=== PATIENT | female | born 1980 | race Caucasian/White ===

== ENCOUNTER → 2018-04-17 | Outpatient (REF) ==
[~2018-04-17] MED LIST: ALBU8.5H IH; BLOO-1318 MC; BLOO-1337 MC; CITA-145 PO; DOXY25TA11 PO; GLIM2TAB43 PO; LANC-1149 MC; METF-411 PO; METF-415 PO; METF10002 PO; METF750T25 PO; ONDA4TAB97 PO; OXYC-865 PO; SAXA5TAB4 PO; SITA100T PO; [UNRECOGNIZED DRUG - CODE] BC
--- NOTE | 2018-04-17 16:19 | RADIOLOGY IMAGING REPORT ---
[place] [facility] [place] Karla Haynes : 1980 MR: [id number] V: [id number] EXAM DATE: ORDERING PHYSICIAN: ELVIA SANTOS TECHNOLOGIST: Location: [facility] Patient: Karla Haynes : 1980 Visit/Account:[id number] Date of Sevice: 04/17/2018 Exam type: KNEE 3 VIEW RIGHT History: Right knee pain and swelling Comparison: None. Findings: Three views the right knee demonstrate no evidence of acute fracture or dislocation. No radiopaque i ntra-articular loose body is seen. No significant arthritic change identified IMPRESSION: 1. No osseous articular abnormality the right knee is seen. If patient's symptoms persist MR may be helpful Report Dictated By: Stacy Salinas MD at 04/17/2018 4:14 PM Report E-Signed By: Stacy Salinas MD at 04/17/2018 4:15 PM WSN:[email or web address]
== END ==
LOC: RAD 15:25
PROVIDERS: ATTEND Family Medicine
DX: M25.561 Pain in right knee (principal); M25.461 Effusion, right knee

== ENCOUNTER → 2018-05-09 | Outpatient (REF) ==
--- NOTE | 2018-05-10 03:20 | RADIOLOGY IMAGING REPORT ---
FACILITY: [facility] [place] PATIENT NAME: Karla Haynes : 1980 MR: [id number] V: [id number] EXAM DATE: ORDERING PHYSICIAN: JESSY REYNOSO TECHNOLOGIST: [place] [facility] [place] Patient: Karla Haynes : 1980 Visit/Account:[id number] Date of Sevice: 05/09/2018 KNEE RIGHT W/O CONTRAST HISTORY: Right knee pain COMPARISON: None TECHNIQUE: Multiplanar/multisequence was obtained through the right knee without contrast. Contrast: None FINDINGS: ACL: Intact with a normal contour through the intracondylar notch. PCL: Normal MCL: Normal LCL: Fibular collateral ligament, biceps femoris tendon and popliteus tendons are intact. Iliotibial band is normal. Medial joint space: No medial meniscal tear. Articular cartilage is normal. Lateral joint space: No lateral meniscal tear. Articular cartilage is normal. Joint effusion: None significant Popliteal cyst: None significant Bone marrow: Normal Quadriceps and patellar tendons: Normal Patellofemoral joint: Focal chondrosis involving the inferior aspect the lateral patellar facet with mild subchondral edema. Mild chondrosis with fissuring of the lateral trochlear cartilage with subcho ndral edema and cystic change. The retinaculum are intact. Mild lateral patellar subluxation measurin g 7 mm. Mild patella poornima. Tibial tubercle-trochlear groove distance of 10 mm. Mild edema within You a's fat pad inferior to lateral patellar facet Soft tissues: Normal Other findings: None significant IMPRESSION: 1. Negative for meniscal tear or ligamentous injury. 2. 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 Report Dictated By: Guero Magaña MD at 05/10/2018 2:50 AM Report E-Signed By: Guero Magaña MD at 05/10/2018 3:03 AM WSN:[id number]
== END ==
LOC: MRI 01:25
PROVIDERS: ATTEND Orthopaedic Surgery Orthopaedic Surgery of the Spine
DX: M25.561 Pain in right knee (principal)